=== PATIENT | male | born 1955 | race Caucasian/White ===

== ENCOUNTER → 2023-10-30 08:41 | Outpatient (REF) | payer MEDICARE, SELFPAY | LOC: DHCBC MAIN 08:41 | PROVIDERS: ATTENDING PHYSICIAN Internal Medicine Cardiovascular Disease; FAMILY PHYSICIAN Family Medicine | DX: Z95.2 Presence of prosthetic heart valve (principal) | CPT/HCPCS: 93306 ==

== ENCOUNTER → 2023-12-22 11:09 | Outpatient (REF) | payer MEDICARE, SELFPAY ==
[2023-12-22 12:29] LABS: Urine Albumin Trace (Neg - Trace); Urine Bilirubin Negative (Negative); Urine Character Clear (Clear); Urine Color Yellow; Urine Glucose Negative (Negative); Urine Ketone Negative (Negative); Urine Leukocyte Negative (Negative); Urine Nitrite Negative (Negative); Urine Occult Blood Negative (Negative); Urine Specific Gravity 1.015 (<1.030); Urine Urobilinogen Negative (Neg - 1+)
[2023-12-22 12:31] LABS: % Basophils 0.4 % (0-2); % Eosinophils 2.2 % (0-6); % Immature Granulocytes 0.6 % (0-0.5); % Lymphocytes 15.5 % (20.5-51.1); % Monocytes 7.8 % (1.7-9.3); % Neutrophils 73.5 % (42.2-75.2); Absolute Eosinophils 0.2 10^3/uL (0-0.7); Absolute Lymphocytes 1.1 10^3/uL (1.2-3.4); Absolute Monocytes 0.6 10^3/uL (0.1-0.6); Absolute Neutrophils 5.3 10^3/uL (1.4-6.5); Hematocrit 35.4 % (39.0-52.0); Hemoglobin 11.8 g/dL (13.0-18.0); Mean Corp Hgb Conc. 33.3 g/dL (33.0-37.0); Mean Corpuscular Volume 98.9 fL (80.0-94.0); Nucleated Red Blood Cells % 0 % (-); Platelet Count 174 10^3/uL (130-400); Red Blood Cell Count 3.58 10^6/uL (4.70-6.10); Red Cell Dist. Width 12.9 % (11.5-14.5); Reticulocyte Count 2.5 % (0.4-2.8); White Blood Cell Count 7.3 10^3/uL (4.8-10.8)
[2023-12-22 13:13] LABS: ALT (SGPT) 44 U/L (0-50); AST (SGOT) 46 U/L (17-59); Albumin 4.4 g/dl (3.5-5.0); Alkaline Phosphatase 97 U/L (38-126); Blood Urea Nitrogen 18 mg/dl (9-20); Calcium 9.5 mg/dl (8.4-10.2); Carbon Dioxide 29 mmol/L (22-30); Chloride 102 mmol/L (98-107); Glucose 103 mg/dl (70-99); HDL Cholesterol 77 mg/dl; LDL Cholesterol, Calculated 55 mg/dl; Potassium 4.3 mmol/L (3.5-5.1); Sodium 136 mmol/L (135-145); Total Bilirubin 0.5 mg/dl (0.2-1.3); Total Cholesterol 145 mg/dl (50-199); Total Protein 6.8 g/dl (6.3-8.2); Triglyceride 67 mg/dl (10-149); Very Low Density Lipoprotein 13 mg/dl (0-30); eGFR > 60.00
[2023-12-22 13:41] LABS: TSH 1.73 uIU/ml (0.47-4.68)
[2023-12-22 13:45] LABS: Ferritin 47.2 ng/ml (17.9-464.0)
[2023-12-22 13:58] LABS: Microalbumin, Random Urine 9.1 mg/dl (0.6-1.7); Microalbumin/creatinine Ratio 99.5 mg/g
[2023-12-23 22:31] LABS: Haptoglobin <10 mg/dL (30-200)
== END ==
LOC: REG 11:09
PROVIDERS: ATTENDING PHYSICIAN Internal Medicine Cardiovascular Disease; FAMILY PHYSICIAN Family Medicine
DX: D64.9 Anemia, unspecified (principal); E11.69 Type 2 diabetes mellitus with other specified complication; E78.5 Hyperlipidemia, unspecified; M54.50 Low back pain, unspecified; M25.551 Pain in right hip
CPT/HCPCS: 36415; 72110; 73502; 80053; 80061; 81003; 82043; 82570; 82728; 83010; 83036; 84443; 85025; 85045

== ENCOUNTER → 2024-01-15 09:40 | Outpatient (REF) | payer MEDICARE, SELFPAY | LOC: RAD 09:40 | PROVIDERS: ATTENDING PHYSICIAN Internal Medicine; FAMILY PHYSICIAN Family Medicine | DX: R11.0 Nausea (principal) | CPT/HCPCS: 74246; 74248 ==

== ENCOUNTER → 2024-02-19 07:30 | Outpatient (REF) | payer MEDICARE, SELFPAY | LOC: DHCBC/DCA 07:30 | PROVIDERS: ATTENDING PHYSICIAN Internal Medicine Cardiovascular Disease; FAMILY PHYSICIAN Family Medicine | DX: R07.9 Chest pain, unspecified (principal); I10 Essential (primary) hypertension | CPT/HCPCS: 78452; 93017; A9500; J2785 ==

== ENCOUNTER → 2024-06-20 07:56 | Outpatient (REF) | payer MEDICARE, SELFPAY ==
[2024-06-20 10:19] LABS: % Basophils 0.5 % (0-2); % Eosinophils 3.2 % (0-6); % Immature Granulocytes 0.5 % (0-0.5); % Lymphocytes 24.6 % (20.5-51.1); % Monocytes 7.2 % (1.7-9.3); Absolute Eosinophils 0.2 10^3/uL (0-0.7); Absolute Lymphocytes 1.4 10^3/uL (1.2-3.4); Absolute Monocytes 0.4 10^3/uL (0.1-0.6); Absolute Neutrophils 3.6 10^3/uL (1.4-6.5); Hematocrit 38.9 % (39.0-52.0); Hemoglobin 13.1 g/dL (13.0-18.0); Mean Corp Hgb Conc. 33.7 g/dL (33.0-37.0); Mean Platelet Volume 9.7 fL (7.4-10.4); Nucleated Red Blood Cells % 0 % (-); Platelet Count 155 10^3/uL (130-400); Red Blood Cell Count 3.97 10^6/uL (4.70-6.10); Red Cell Dist. Width 12.9 % (11.5-14.5); Reticulocyte Count 2.5 % (0.4-2.8); White Blood Cell Count 5.6 10^3/uL (4.8-10.8)
[2024-06-20 10:30] LABS: INR 2.54; PT 27.3 Sec (11.4-14.6)
[2024-06-20 10:30] LABS: Urine Albumin Trace (Neg - Trace); Urine Bilirubin Negative (Negative); Urine Character Clear (Clear); Urine Color Yellow; Urine Glucose 3+ (Negative); Urine Ketone Negative (Negative); Urine Leukocyte Negative (Negative); Urine Nitrite Negative (Negative); Urine Occult Blood Negative (Negative); Urine Urobilinogen Negative (Neg - 1+)
[2024-06-20 10:37] LABS: ALT (SGPT) 40 U/L (0-50); AST (SGOT) 41 U/L (17-59); Albumin 4.5 g/dl (3.5-5.0); Alkaline Phosphatase 103 U/L (38-126); Blood Urea Nitrogen 19 mg/dl (9-20); Calcium 9.2 mg/dl (8.4-10.2); Carbon Dioxide 29 mmol/L (22-30); Chloride 101 mmol/L (98-107); Glucose 167 mg/dl (70-99); Potassium 4.6 mmol/L (3.5-5.1); Sodium 143 mmol/L (135-145); Total Bilirubin 0.4 mg/dl (0.2-1.3); eGFR > 60.00
[2024-06-20 10:41] LABS: Glycohemoglobin (HgbA1c) 5.8 % (4.0-5.6)
[2024-06-20 14:04] LABS: PSA, Total - Screen 2.02 ng/ml (0.0-4.0)
[2024-06-20 14:12] LABS: Microalbumin, Random Urine 9.1 mg/dl (0.6-1.7)
[2024-06-20 14:15] LABS: Microalbumin/creatinine Ratio 112.2 mg/g
[2024-06-20 14:18] LABS: Ferritin 23.6 ng/ml (17.9-464.0)
[2024-06-20 14:49] LABS: TSH 1.58 uIU/ml (0.47-4.68)
[2024-06-21 23:19] LABS: Haptoglobin <10 mg/dL (30-200)
== END ==
LOC: RAD 07:56
PROVIDERS: ATTENDING PHYSICIAN Nurse Practitioner; FAMILY PHYSICIAN Family Medicine; OTHER PHYSICIAN Internal Medicine Cardiovascular Disease; REFERRING PHYSICIAN Nuclear Medicine Nuclear Cardiology
DX: R11.0 Nausea (principal); Z95.2 Presence of prosthetic heart valve; Z95.0 Presence of cardiac pacemaker; Z95.5 Presence of coronary angioplasty implant and graft; I48.91 Unspecified atrial fibrillation; E61.1 Iron deficiency; I10 Essential (primary) hypertension; E11.69 Type 2 diabetes mellitus with other specified complication; E78.5 Hyperlipidemia, unspecified; T82.897A Other specified complication of cardiac prosthetic devices, implants and grafts, initial encounter; D64.9 Anemia, unspecified; Z12.5 Encounter for screening for malignant neoplasm of prostate
CPT/HCPCS: 36415; 78264; 80053; 81003; 82043; 82570; 82728; 83010; 83036; 84443; 85025; 85045; 85610; A9541; G0103

== ENCOUNTER → 2024-07-11 11:21 | Outpatient (REF) | payer MEDICARE, SELFPAY | LOC: RAD 11:21 | PROVIDERS: ATTENDING PHYSICIAN Specialist; FAMILY PHYSICIAN Family Medicine | DX: N20.0 Calculus of kidney (principal) | CPT/HCPCS: 76775 ==

== ENCOUNTER → 2024-08-16 08:16 | Outpatient (REF) | payer MEDICARE, SELFPAY ==
[2024-08-16 10:43] LABS: HDL Cholesterol 68 mg/dl; LDL Cholesterol, Calculated 42 mg/dl; Total Cholesterol 134 mg/dl (50-199); Triglyceride 121 mg/dl (10-149); Very Low Density Lipoprotein 24 mg/dl (0-30)
[2024-08-16 11:10] LABS: Vitamin B12 610 pg/ml (239-931)
== END ==
LOC: REG 08:16
PROVIDERS: ATTENDING PHYSICIAN Internal Medicine; FAMILY PHYSICIAN Family Medicine; REFERRING PHYSICIAN Internal Medicine Cardiovascular Disease
DX: E61.1 Iron deficiency (principal); I10 Essential (primary) hypertension; E11.69 Type 2 diabetes mellitus with other specified complication; E78.5 Hyperlipidemia, unspecified; T82.897A Other specified complication of cardiac prosthetic devices, implants and grafts, initial encounter; D64.9 Anemia, unspecified; Z12.5 Encounter for screening for malignant neoplasm of prostate
CPT/HCPCS: 36415; 80061; 82607

== ENCOUNTER → 2024-11-23 12:01 | Outpatient (REF) | payer MEDICARE, SELFPAY ==
[2024-11-23 14:02] LABS: % Basophils 0.6 % (0-2); % Eosinophils 2.9 % (0-6); % Immature Granulocytes 0.3 % (0-0.5); % Monocytes 8.2 % (1.7-9.3); Absolute Eosinophils 0.2 10^3/uL (0-0.7); Absolute Lymphocytes 1.3 10^3/uL (1.2-3.4); Absolute Monocytes 0.5 10^3/uL (0.1-0.6); Absolute Neutrophils 4.5 10^3/uL (1.4-6.5); Hematocrit 39.9 % (39.0-52.0); Hemoglobin 12.7 g/dL (13.0-18.0); Mean Corp Hgb Conc. 31.8 g/dL (33.0-37.0); Mean Corpuscular Volume 97.3 fL (80.0-94.0); Mean Platelet Volume 10.1 fL (7.4-10.4); Nucleated Red Blood Cells % 0 % (-); Platelet Count 179 10^3/uL (130-400); Red Cell Dist. Width 13.2 % (11.5-14.5); White Blood Cell Count 6.6 10^3/uL (4.8-10.8)
[2024-11-23 14:33] LABS: ALT (SGPT) 44 U/L (0-50); AST (SGOT) 42 U/L (17-59); Albumin 4.2 g/dl (3.5-5.0); Alkaline Phosphatase 103 U/L (38-126); Blood Urea Nitrogen 21 mg/dl (9-20); Calcium 9.4 mg/dl (8.4-10.2); Carbon Dioxide 31 mmol/L (22-30); Chloride 105 mmol/L (98-107); Glucose 105 mg/dl (70-99); HDL Cholesterol 75 mg/dl; LDL Cholesterol, Calculated 48 mg/dl; Sodium 141 mmol/L (135-145); Total Bilirubin 0.8 mg/dl (0.2-1.3); Total Cholesterol 144 mg/dl (50-199); Total Protein 6.5 g/dl (6.3-8.2); Triglyceride 107 mg/dl (10-149); Very Low Density Lipoprotein 21 mg/dl (0-30); eGFR > 60.00
[2024-11-24 08:44] LABS: Glycohemoglobin (HgbA1c) 5.9 % (4.0-5.6)
== END ==
LOC: REG 12:01
PROVIDERS: ATTENDING PHYSICIAN Family Medicine
DX: E11.69 Type 2 diabetes mellitus with other specified complication (principal); E78.5 Hyperlipidemia, unspecified
CPT/HCPCS: 36415; 80053; 80061; 83036; 85025

== ENCOUNTER → 2025-01-05 09:50 | Outpatient (REF) | payer MEDICARE, SELFPAY ==
[2025-01-05 11:10] LABS: % Basophils 0.7 % (0-2); % Eosinophils 3.1 % (0-6); % Immature Granulocytes 0.7 % (0-0.5); % Lymphocytes 23.8 % (20.5-51.1); % Monocytes 8.1 % (1.7-9.3); % Neutrophils 63.6 % (42.2-75.2); Absolute Eosinophils 0.2 10^3/uL (0-0.7); Absolute Lymphocytes 1.4 10^3/uL (1.2-3.4); Absolute Monocytes 0.5 10^3/uL (0.1-0.6); Absolute Neutrophils 3.9 10^3/uL (1.4-6.5); Hematocrit 38.8 % (39.0-52.0); Hemoglobin 12.8 g/dL (13.0-18.0); Mean Corpuscular Hgb 30.8 pg (27.0-31.0); Mean Corpuscular Volume 93.5 fL (80.0-94.0); Mean Platelet Volume 9.9 fL (7.4-10.4); Nucleated Red Blood Cells % 0 % (-); Platelet Count 186 10^3/uL (130-400); Red Blood Cell Count 4.15 10^6/uL (4.70-6.10); Red Cell Dist. Width 13.2 % (11.5-14.5); White Blood Cell Count 6.1 10^3/uL (4.8-10.8)
[2025-01-05 11:40] LABS: Iron 113 ug/dl (49-181); LDH 359 U/L (120-246)
[2025-01-05 12:24] LABS: Ferritin 15.7 ng/ml (17.9-464.0)
[2025-01-05 12:38] LABS: Vitamin B12 621 pg/ml (239-931)
[2025-01-07 03:37] LABS: Haptoglobin <10 mg/dL (30-200)
== END ==
LOC: REG 09:50
PROVIDERS: ATTENDING PHYSICIAN Internal Medicine; FAMILY PHYSICIAN Family Medicine; OTHER PHYSICIAN Internal Medicine Cardiovascular Disease
DX: D50.9 Iron deficiency anemia, unspecified (principal); Z79.4 Long term (current) use of insulin; Z95.0 Presence of cardiac pacemaker; Z95.2 Presence of prosthetic heart valve; R74.02 Elevation of levels of lactic acid dehydrogenase [LDH]; K21.9 Gastro-esophageal reflux disease without esophagitis; I49.5 Sick sinus syndrome; I25.10 Atherosclerotic heart disease of native coronary artery without angina pectoris; I45.10 Unspecified right bundle-branch block; D64.9 Anemia, unspecified; E11.69 Type 2 diabetes mellitus with other specified complication; Z79.899 Other long term (current) drug therapy
CPT/HCPCS: 36415; 82607; 82728; 83010; 83540; 83615; 85025

== ENCOUNTER 2025-01-10 14:36 | Inpatient (IN) | payer MEDICARE, SELFPAY ==
[2025-01-10 10:37] VITALS: BP 144/94
[2025-01-10 11:02] LABS: % Basophils 0.5 % (0-2); % Eosinophils 2.5 % (0-6); % Immature Granulocytes 0.4 % (0-0.5); % Lymphocytes 18.7 % (20.5-51.1); % Monocytes 8.6 % (1.7-9.3); % Neutrophils 69.3 % (42.2-75.2); Absolute Eosinophils 0.2 10^3/uL (0-0.7); Absolute Lymphocytes 1.4 10^3/uL (1.2-3.4); Absolute Monocytes 0.7 10^3/uL (0.1-0.6); Absolute Neutrophils 5.3 10^3/uL (1.4-6.5); Hematocrit 40.1 % (39.0-52.0); Hemoglobin 13.2 g/dL (13.0-18.0); Mean Corp Hgb Conc. 32.9 g/dL (33.0-37.0); Mean Corpuscular Hgb 30.8 pg (27.0-31.0); Mean Corpuscular Volume 93.5 fL (80.0-94.0); Mean Platelet Volume 9.6 fL (7.4-10.4); Nucleated Red Blood Cells % 0 % (-); Platelet Count 187 10^3/uL (130-400); Red Blood Cell Count 4.29 10^6/uL (4.70-6.10); Red Cell Dist. Width 13.2 % (11.5-14.5); White Blood Cell Count 7.7 10^3/uL (4.8-10.8)
--- NOTE | 2025-01-10 11:02 | ED.GENMED ---
History of Present Illness
General
Chief Complaint: Abnormal Lab Value
Source: patient
Exam Limitations: none
Time Seen by Provider: 01/10/25 10:41
History of Present Illness
History of Present Illness:
See MDM
Past History
Past History
ED Past Medical History: Arrthythmia (Atrial fib/Flutter), CAD, GERD, HTN, Hypercholesterolemia, NIDDM, Valvular disease and Other (Iatrogenic intracranial hemorrhage requiring craniotomy, Kidney stones, RBBB, L subdural hemorrhage)
ED Past Surgical History: Appendectomy, Cardiac (CABG and mitral valve replacement, Albation, Stents) and Other (hernia)
Social History
Tobacco: Former smoker
Alcohol: Occasional
Drug: None
Personal:
Living: with family
Employment: Employed
Family History
Family History: Other (nc)
Phy Exam
Physical Exam
Physical Exam:
See MDM
Course
Orders/Labs/Results
Orders:
Orders
01/10/25 10:52
Complete Blood Count/With Diff Urgent
Comprehensive Metabolic Panel Urgent
PT/INR [Prothrombin Time] Urgent
Vital Signs
Initial and Last Documented VS:
Initial Vital Signs
Temp Pulse Resp BP Pulse Ox
97.8 F 73 16 144/94 99
01/10/25 10:37 01/10/25 10:37 01/10/25 10:37 01/10/25 10:37 01/10/25 10:37
Last Documented Vital Signs
Temp Pulse Resp BP Pulse Ox
97.8 F 73 16 144/94 99
01/10/25 10:37 01/10/25 10:37 01/10/25 10:37 01/10/25 10:37 01/10/25 10:37
MDM/Problems Addressed
Differential Diagnosis Includes:
HPI and MDM Narrative:
69-year-old male presenting to the emergency department for heparin drip and admission for colonoscopy. Patient has a prosthetic valve and is currently on Coumadin. He is due for colonoscopy but needs to be on IV heparin until INR is less than
1.3. Patient states his Coumadin level was recently 2.1. He was sent in from cardiology for admission
On arrival, patient Is well-appearing nontoxic. He is in no acute distress. Will start IV heparin. Cardiology made aware and they will admit
Physical exam
General: Well appearing and non-toxic
HEENT: protecting airway
Neck: appears supple
CV: No evidence of cyanosis
Resp: No accessory muscle use
Abd: Non-distended
Extremities: No deformities
Neuro: alert
Psych: Normal affect
Skin: Intact
Problems Addressed including Acute and Chronic Conditions affecting care:
1. History of prosthetic valve
Acuity: acute
Prognosis: stable
Details: Patient on Coumadin chronically. He will need a lower INR for colonoscopy. Will start heparin while holding Coumadin
Drug therapy (if applicable): OTC meds, please see d/c instruction regarding Rx drugs
Amount and/or Complexity of Data Reviewed
Clinical info obtained from: Patient
External data reviewed: N/A
Labs I independently reviewed (but not limited to): INR
Radiology: N/A
Pulse Ox: not hypoxic
EKG independently reviewed: N/A
Correctional Agency Director: N/A
Critical Care: N/A
Risk of Complication:
Social Determinants of health: Good social support
Discussed with other providers: Cardiology
Escalation of Care includes Admit/Obs: Given the patient's need to be on heparin while Coumadin is held, will admit
Occasional wrong word or 'sound a like' substitutions may have occurred due to the inherent limitations of voice recognition software. Read the chart carefully and recognize, using context, where substitutions have occurred.
*Critical Care Note
Total Time (30-74mins, 75-104mins- exclusive of procedures): Not Applicable
ED Attending Note
-
Portions of this chart may have been created with voice recognition software.� Occasional wrong word or��sound alike� substitutions may have occurred due to the inherent limitations of voice recognition software.
Discharge Plan
Departure
Patient Disposition: Admit
Date of Disposition: 01/10/25
Time of Disposition: 11:01
Presentation/result/management discussed w/ accepting MD/DO: Cardiology
Discharge Problem:
Presence of prosthetic heart valve
Prescriptions:
No Action
lorazepam 1 MG tablet
1 mg PO Q8HPRN PRN (Reason: anxiety)
Patient Comments:
09/21/2019 patient filled #[id number] for 20 days 08/26/2019
ezetimibe 10 MG tablet
10 mg PO QPM
nitroglycerin 0.4 MG tablet, sublingual
0.4 mg sublingual [id number] PRN (Reason: chest pain) Qty: 30 3RF
Patient Comments:
For AP
irbesartan-hydrochlorothiazide 1 EACH tablet
1 ea PO DAILY
Janumet 1 EACH tablet
1 ea PO BID
Trulicity 0.75 MG/0.5 ML pen injector
0.75 mg SC .WEEKLY THURSDAY
simvastatin 40 MG tablet
40 mg PO HS
warfarin [Jantoven] 7.5 MG tablet
7.5 mg PO MOTUWETH
Rx Instructions:
Follows Dr. Jin's instructions
warfarin [Jantoven] 5 MG tablet
5 mg PO SUFRSA
Rx Instructions:
Follows Dr. Jin's instructions
omeprazole 40 MG capsule,delayed release(/EC)
40 mg PO DAILY
sennosides [senna] 8.6 MG tablet
8.6 mg PO BID
docusate sodium 250 MG capsule
250 mg PO BID
ferrous sulfate [Iron (ferrous sulfate)] 325 MG tablet
325 mg PO BID
potassium chloride [Klor-Con M20] 20 MEQ tablet,ER particles/crystals
20 meq PO PRN PRN (Reason: with lasix)
Patient Comments:
weeks ago per patient.
furosemide 40 MG tablet
40 mg PO DAILYPRN PRN (Reason: swelling)
Patient Comments:
last dose was beginning of January per patient.
tamsulosin 0.4 MG capsule
0.4 mg PO DAILY
amlodipine 10 MG tablet
10 mg PO DAILY
lorazepam 1 MG tablet
1 mg PO HSPRN PRN (Reason: anxiety)
potassium citrate 15 MEQ tablet extended release
15 meq PO BID
cyclobenzaprine 10 mg tablet
10 mg PO TID PRN (Reason: spasm) Qty: 14 0RF
hydrocodone-acetaminophen 5-325 mg tablet
2 tab PO Q4H PRN (Reason: pain) Qty: 14 0RF
Centrum Silver Tablet
1 tab PO DAILY
tramadol 50 MG tablet
50 mg PO Q8 PRN (Reason: pain) Qty: 30 0RF
Interventions
Interventions:
*Risk Screen - Suicide Last Done: 01/10/25 10:40
*Neglect/Abuse Screening Last Done: 01/10/25 10:40
Discharge Date and Time
Print Language: DIVEHI
[2025-01-10 11:11] LABS: INR 1.62; PT 19.4 Sec (11.4-14.6)
[2025-01-10 11:24] LABS: ALT (SGPT) 30 U/L (0-50); AST (SGOT) 30 U/L (17-59); Albumin 4.5 g/dl (3.5-5.0); Alkaline Phosphatase 86 U/L (38-126); Blood Urea Nitrogen 19 mg/dl (9-20); Calcium 9.6 mg/dl (8.4-10.2); Carbon Dioxide 29 mmol/L (22-30); Chloride 107 mmol/L (98-107); Glucose 116 mg/dl (70-99); Potassium 4.9 mmol/L (3.5-5.1); Sodium 140 mmol/L (135-145); Total Bilirubin 0.9 mg/dl (0.2-1.3); eGFR > 60.00
[2025-01-10] MEDS: HEPARIN 4000 UNITS IV (11:48)
[2025-01-10] MEDS: HEPARIN 25000 UNITS/250 ML IV (11:49)
[2025-01-10 12:37] LABS: APTT 34.3 Sec (23.4-35.0)
--- NOTE | 2025-01-10 12:56 | W.PN.CD ---
Today's Communication / Plan
-
Bridging with IV heparin
Plan for colonoscopy tomorrow by Dr. Genao
Prep as directed by GI
Impression / Plan
-
69-year-old male with mechanical mitral valve replacement and coronary artery bypass grafting in 2007, atrial fibrillation, A-fib ablation pacemaker history of CVA who is scheduled have colonoscopy on Thursday. Patient in the past had an issue
after taking Lovenox. Since that time he has been bridged with IV heparin for procedures.. Patient previously was followed by Dr. Jin until his half-way and now is followed by Dr. Martinez. Patient scheduled for colonoscopy by Dr. Mcallister on
01/11/2025. Last dose of Coumadin was on 01/07/2025. INR yesterday was 3.0. Today INR is below 2.0
.
Anticoagulation. Patient is anticoagulated with Coumadin and target INR has been 2.5-3.5. Some notes suggest the patient had CVA when INR was below 2.5. Patient is on anticoagulation due to mechanical mitral valve and history of A-fib
- Continue off Coumadin until after colonoscopy.
- Bridging with IV heparin
- Initiate Coumadin and resume IV heparin as soon as safe post colonoscopy.
.
Mechanical mitral valve. Stable by most recent echo. Anticoagulation as noted above
.
Coronary artery disease/history of coronary artery bypass grafting. Stable without angina.
.
.
Pacemaker. Stable
.
Precolonoscopy.
- Patient stable from a cardiology standpoint to proceed with colonoscopy as scheduled
- Plan for bridging with IV heparin preprocedure and postprocedure
Physical Exam
Vital Signs/Labs
Vital Signs
Temp Pulse Resp BP Pulse Ox
97.8 F 73 16 144/94 99
01/10/25 10:37 01/10/25 10:37 01/10/25 10:37 01/10/25 10:37 01/10/25 10:37
01/09/25 01/10/25 01/11/25
06:59 06:59 06:59
Actual Weight 106.3 kg
01/10/25 10:52
01/10/25 10:52
PT 19.4 Sec (11.4-14.6) H 01/10/25 10:52
INR 1.62 01/10/25 10:52
APTT 34.3 Sec (23.4-35.0) 01/10/25 11:27
Physical Exam
Constitutional: No acute distress
Cardiovascular: Rhythm & rate is regular and Other (Mechanical S1)
Respiratory: Respiratory effort normal
GI: Soft and Non tender
Neuro/Psych: Alert, Oriented and AO x 3
Other: Skin
Data Reviewed
-
Date of Service: January 10, 2025
Medical Decision Making: Reviewed Test Results
Medical Tests (PFT, Pathology etc): Report Reviewed by me
Labs: Labs Reviewed by me
--- NOTE | 2025-01-10 13:51 | CON.GI ---
Addendum entered and electronically signed by Camden Capellan MD 01/10/25 16:17:
I saw and examined the patient.
The HUMAN RESOURCES PROJECT COORDINATOR or PA's note was reviewed and I agree with the note.
Comment: 69yo male hx MVR, Afib, hx TIA while holding coumadin in the past and [facility] admitted for bridging heparin for elective EGD/colonoscopy for GERD and CRC screening. Currently reflux controlled on protonix. Last EGD 2020 showed food in
stomach. Currently denies early satiety, abd pain, n/v. Last colonoscopy 2019 showed hyperplastic polyps. Has hx anemia, and possible component of hemolysis. Hgb today 13.2. INR 1.62. Currently on heparin gtt
REC:
Proceed with EGD/colonoscopy tomorrow
Hold heparin gtt at 8am for procedure at 1pm and resume GAURAV
Original Note:
Consultation
-
Date/Time Consultation Requested: 01/10/25 1130
Date/Time Consultation Performed: 01/10/25 1400
Requesting Provider: JAME Newby
Performing Provider: JAME Wang, Camden Capellan MD
Reason for Consultation: pre EGD/colon with bridge
Medical History
Chief Complaint / HPI
Chief Complaint: pre EGD/colon with need for heparin bridge, hx GERD, RICHELLE
History of Present Illness:
Pt is a 69yo with hx mechanical mitral valve on warfarin, NIDDM, pacer, afib with prior ablation, deficiency anemia, prior subdural hematoma with lovenox Bridge, nephrolithiasis with prior lithotripsy, thyroid nodule, DVT: RUE , hx colon polyps,
sleep apnea, hx mumps, chickenpox, prior PNA, DDD, hip osteo, hernia repair presents for heparin bridging prior to EGD/colon with assist of cardiology.
Pt was last seen in GI office in July and now coordinated with cardiology for admission for bridging. He currently denies any GI issue with dysphagia, GERD, nausea, vomiting, abdominal pain, diarrhea, constipation, blood or black in stools.
Past Medical History
Past Medical History: Arrhythmias (afib ), CAD, CVA (prior TIA), HTN, Hypercholesterolemia, NIDDM, Seizures (anxiety ), Valvular Disease (mitral regurg, MVP hx MVR) and Other (Iron deficiency anemia, prior subdural hematoma with lovenox Bridge,
nephrolithiasis with prior lithotripsy, thyroid nodule, DVT: RUE , hx colon polyps, sleep apnea, hx mumps, chickenpox, prior PNA, DDD, hip osteo)
Past Surgical History: Brain (prior craniotomy), Cardiac (mechanical mitral valve on chronic warfarin, prior CABG/stents, aflutter ablation, pacer ) and Other (hernia repair )
Social History
Tobacco: Non-Smoker
Alcohol: Occasional
Drug: None
Personal:
Living: With Family
Employment: Retired
Family History
Family History: Other (father CAD , glaucoma, HTN, mother hx uterine and ovarian CA, HTN, DM)
Allergies / Home Medications
Allergy/AdvReac Type Severity Reaction Status Date / Time
No Known Drug Allergies Allergy NA Verified 01/10/25 10:37
tree nut [Tree Nut] Allergy mild Verified 01/10/25 10:37
throat
close
apple/peaches/jay/necterines Allergy throat Uncoded 01/10/25 10:37
close
seasonal Allergy Congested, Uncoded 01/10/25 10:37
watery
eyes,
runny nose
�Medication �Instructions �Recorded
ezetimibe 10 mg tablet 10 mg PO DAILY High cholesterol 02/14/10
dulaglutide 0.75 mg/0.5 mL 0.75 mg SC MO Diabetes 01/10/19
subcutaneous pen injector
(Trulicity)
warfarin 7.5 mg tablet (Jantoven) 7.5 mg PO QPM Blood clot 09/21/19
prevention/tx
docusate sodium 250 mg capsule 250 mg PO BID Constipation 11/15/20
sennosides 8.6 mg tablet (senna) 8.6 mg PO BID Constipation 11/15/20
ferrous sulfate 325 mg (65 mg 325 mg PO BID 02/19/22
iron) tablet (Iron (ferrous
sulfate))
amlodipine 10 mg tablet 10 mg PO DAILY 02/21/22
Citralith 2 packet PO DAILY 01/10/25
allopurinol 300 mg tablet 300 mg PO DAILY 01/10/25
atorvastatin 80 mg tablet (Lipitor) 80 mg PO DAILY 01/10/25
empagliflozin 10 mg tablet 10 mg PO QPM 01/10/25
(Jardiance)
furosemide 40 mg tablet (Lasix) 40 mg PO DAILYPRN PRN fluids 01/10/25
irbesartan 300 1 tab PO DAILY 01/10/25
mg-hydrochlorothiazide 12.5 mg
tablet
lorazepam 1 mg tablet 1 mg PO Q6HPRN PRN anixety 01/10/25
metformin 1,000 mg tablet 1,000 mg PO BID 01/10/25
oxycodone-acetaminophen 5 mg-325 1 tab PO TIDPRN PRN severe pains 01/10/25
mg tablet (Percocet)
pantoprazole 40 mg tablet,delayed 40 mg PO DAILY 01/10/25
release (Protonix)
ramelteon 8 mg tablet 8 - 16 mg PO HS 01/10/25
tamsulosin 0.4 mg capsule (Flomax) 0.4 mg PO DAILY 01/10/25
therapeutic multivitamin 1 tab PO DAILY 01/10/25
Review of Systems
-
History Source: Patient
Constitutional: Reports No Symptoms
EENT: Reports No Symptoms
Respiratory: Reports No Symptoms
Cardiac: Reports No Symptoms
Abdomen/GI: Reports No Symptoms
: Reports No Symptoms
Musculoskeletal: Reports No Symptoms
Skin: Reports No Symptoms
Neurological: Reports No Symptoms
Endocrine: Reports No Symptoms
Hematologic/Lymphatic: Reports No Symptoms
Vital Signs
Temp Pulse Resp BP Pulse Ox
97.8 F 73 16 144/94 99
01/10/25 10:37 01/10/25 10:37 01/10/25 10:37 01/10/25 10:37 01/10/25 10:37
Physical Exam
Exam
General: Well Developed, Well Nourished and No Apparent Distress
HEENT: Normocephalic and Anicteric
Respiratory: Clear
Cardiac: Regular Rhythm
GI: Soft, Non Tender and Non Distended
Musculoskeletal: No Clubbing and No Cyanosis
Skin: Warm and Dry
Neuro: Awake, Alert and AO x 3
Psych: Calm
Results
WBC 7.7 10^3/uL (4.8-10.8) 01/10/25 10:52
Hgb 13.2 g/dL (13.0-18.0) 01/10/25 10:52
Hct 40.1 % (39.0-52.0) 01/10/25 10:52
MCV 93.5 fL (80.0-94.0) 01/10/25 10:52
Plt Count 187 10^3/uL (130-400) 01/10/25 10:52
Absolute Neuts (auto) 5.3 10^3/uL (1.4-6.5) 01/10/25 10:52
PT 19.4 Sec (11.4-14.6) H 01/10/25 10:52
INR 1.62 01/10/25 10:52
APTT Cancelled 01/10/25 11:35
Sodium 140 mmol/L (135-145) 01/10/25 10:52
Potassium 4.9 mmol/L (3.5-5.1) 01/10/25 10:52
Chloride 107 mmol/L (98-107) 01/10/25 10:52
Carbon Dioxide 29 mmol/L (22-30) 01/10/25 10:52
BUN 19 mg/dl (9-20) 01/10/25 10:52
Creatinine 1.0 mg/dL (0.7-1.3) 01/10/25 10:52
Calcium 9.6 mg/dl (8.4-10.2) 01/10/25 10:52
Total Bilirubin 0.9 mg/dl (0.2-1.3) 01/10/25 10:52
AST 30 U/L (17-59) 01/10/25 10:52
ALT 30 U/L (0-50) 01/10/25 10:52
Alkaline Phosphatase 86 U/L (38-126) 01/10/25 10:52
Diagnostic Image Results:
Prior GI Procedures:
EGD:04/11/21 [facility] for RICHELLE - Normal esophagus.
- Z-line regular, 47 cm from the incisors.
- Mild antral gastritis. Biopsied.
- A medium amount of food (residue) in the stomach.
- Normal examined duodenum. Biopsied.
There was no endoscopic evidence of bleeding,
ulceration or varices in the entire examined
esophagus, stomach or duodenum.
Colonoscopy: 03/09/20 [facility] good prep to IC valve - One 4 mm polyp in the sigmoid colon. Biopsied.
- Minimal diverticulosis in the sigmoid colon. bx HP polyp
flex si [facility] - Preparation of the colon was fair.
- The rectum, sigmoid colon, descending colon and
splenic flexure are normal.
- Retroflexion normal
- No specimens collected
Assessment / Plan
-
Pt is a 69yo with hx mechanical mitral valve on warfarin, NIDDM, pacer, afib with prior ablation, deficiency anemia, prior subdural hematoma with lovenox Bridge, nephrolithiasis with prior lithotripsy, thyroid nodule, DVT: RUE , hx colon polyps,
sleep apnea, hx mumps, chickenpox, prior PNA, DDD, hip osteo, hernia repair presents for heparin bridging prior to EGD/colon with assist of cardiology.
Pt was last seen in GI office in July and now coordinated with cardiology for admission for bridging. He currently denies any GI issue with dysphagia, GERD, nausea, vomiting, abdominal pain, diarrhea, constipation, blood or black in stools.
-hx Mech mitral valve(coumadin prior to admission) -on heparin bridge
-hx RICHELLE
-GERD
-hx colon polyps- due for colonoscopy
-hx nausea-- stable now without complaints
other med problems:
-NIDDM
-pacer
- afib with prior ablation
- prior subdural hematoma with lovenox Bridge
-nephrolithiasis with prior lithotripsy
- thyroid nodule
-hx DVT
-sleep apnea
-DDD/hip osteo
-hernia repair
PLAN:
pt now admitted for heparin bridge prior to EGD/colon
labs stable on admission with hbg 13.2, INR 1.62, chemistry stable
heparin gtt with hold at 8AM- cards helping for management
will proceed with suprep as planned with gas x and dulcolax tabs -- will have pharmacy check
ok foe clears then NPO in AM
-
-
Thank you for consultation and allowing me to participate in the patient's care. Please call the promotions assistant sales marketing GI physician during the after hours with any questions or concerns.
[2025-01-10 14:39] VITALS: BMI 30.1
[2025-01-10 14:56] VITALS: BP 160/88
--- NOTE | 2025-01-10 15:15 | PTCARENOTE ---
Patient received from ED nurse. Medications reviewed. Admission questions completed. Patient sitting comfortably in bed. Reviewed plan of care and questions encouraged.
--- NOTE | 2025-01-10 16:51 | CM ---
Chart reviewed. Patient is independent of ADLS, lives with his in a [address], 4 [address], 0 DME. Plan is for the patient to return home. CM to follow
[2025-01-10] MEDS: NON-FORMULARY ITEM 1 UNIT PO (16:54)
[2025-01-10] MEDS: GLUCOPHAGE PO (16:54)
[2025-01-10] MEDS: MYLICON 160 MG PO (16:55)
[2025-01-10] MEDS: DULCOLAX 10 MG PO (16:56)
[2025-01-10 18:44] LABS: APTT 82.7 Sec (23.4-35.0)
[2025-01-10 19:49] VITALS: BP 131/83
[2025-01-10 20:02] VITALS: BP 129/81
--- NOTE | 2025-01-10 20:49 | PTCARENOTE ---
Patient received at change of shift out of bed ambulating. Patient reports abdominal cramping, but otherwise has no complaints. Denies nausea/vomiting. Atrial paced on the monitor. Oxygen saturation 98-100% on room air. Heparin gtt infusing at
1500units/hr. Plan of care discussed. Call agee within reach. Care ongoing.
[2025-01-10 23:47] VITALS: BP 121/79
[2025-01-11] VITALS (14 sets, daily range): BP systolic 16–129; BP diastolic 45–94; BMI 29.9
[2025-01-11 00:19] LABS: APTT 72.9 Sec (23.4-35.0)
[2025-01-11] MEDS: HEPARIN 25000 UNITS/250 ML IV (04:07)
[2025-01-11] MEDS: MYLICON 160 MG PO (05:03)
[2025-01-11] MEDS: DULCOLAX 10 MG PO (05:03)
[2025-01-11] MEDS: NON-FORMULARY ITEM 1 UNIT PO (06:03)
[2025-01-11] MEDS: ATIVAN 1 MG PO ×3 (06:12→18:34)
[2025-01-11 06:38] LABS: APTT 88.6 Sec (23.4-35.0)
--- NOTE | 2025-01-11 08:03 | PTCARENOTE ---
pt is AOx3, no complaints of pain or discomfort. HEparin gtt stopped per orders. Pt NPO for EGD/colonscopy later today. Independent OOB. Call agee within reach.
--- NOTE | 2025-01-11 08:07 | W.PN.CD ---
Today's Communication / Plan
-
IV Heparin held at 8 AM for colonoscopy at 1PM.
Resume IV Heparin as soon as GI feels it is safe post procedure
Would resume coumadin as soon as safe post procedure. He is normally on 7.5mg. Would radha 10mg coumadin as first dose when restarting
Impression / Plan
-
69-year-old male with mechanical mitral valve replacement and coronary artery bypass grafting in 2007, atrial fibrillation, A-fib ablation pacemaker history of CVA who is scheduled have colonoscopy on Thursday. Patient in the past had an issue
after taking Lovenox. Since that time he has been bridged with IV heparin for procedures.. Patient previously was followed by Dr. Jin until his [facility] and now is followed by Dr. Martinez. Patient scheduled for colonoscopy by Dr. Mcallister on
01/11/2025. Last dose of Coumadin was on 01/07/2025. INR yesterday was 3.0. Today INR is below 2.0
.
Anticoagulation. Patient is anticoagulated with Coumadin and target INR has been 2.5-3.5. Some notes suggest the patient had CVA when INR was below 2.5. Patient is on anticoagulation due to mechanical mitral valve and history of A-fib
- Continue off Coumadin until after colonoscopy.
- Bridging with IV heparin
- Initiate Coumadin and resume IV heparin as soon as safe post colonoscopy.
.
Mechanical mitral valve. Stable by most recent echo. Anticoagulation as noted above
.
Coronary artery disease/history of coronary artery bypass grafting. Stable without angina.
.
.
Pacemaker. Stable
.
Precolonoscopy.
- Patient stable from a cardiology standpoint to proceed with colonoscopy as scheduled
- Plan for bridging with IV heparin preprocedure and postprocedure
- colonoscopy 01/11/25
Physical Exam
Vital Signs/Labs
Vital Signs
Temp Pulse Resp BP Pulse Ox
97.9 F 70 18 122/75 96
05/14/25 03:59 01/11/25 05:00 01/11/25 03:59 01/11/25 04:00 01/11/25 04:00
01/10/25 01/11/25 01/12/25
06:59 06:59 06:59
Actual Weight 105.4 kg
01/10/25 10:52
PT 19.4 Sec (11.4-14.6) H 01/10/25 10:52
INR 1.62 01/10/25 10:52
APTT 88.6 Sec (23.4-35.0) H 01/11/25 06:10
Physical Exam
Constitutional: No acute distress
Cardiovascular: Rhythm & rate is regular and Other ([facility] S1)
Respiratory: Respiratory effort normal
Neuro/Psych: Alert
Data Reviewed
-
Date of Service: January 11, 2025
Medical Decision Making: Reviewed Test Results
Labs: Labs Reviewed by me
[2025-01-11] MEDS: PROTONIX 40 MG PO (08:19)
[2025-01-11] MEDS: ZETIA 10 MG PO (08:19)
[2025-01-11] MEDS: FLOMAX 0.4 MG PO (08:19)
[2025-01-11] MEDS: NORVASC 10 MG PO (08:19)
[2025-01-11] MEDS: AVAPRO 300 MG PO (08:19)
[2025-01-11] MEDS: ZYLOPRIM 300 MG PO (08:19)
[2025-01-11] MEDS: LIPITOR 80 MG PO (08:19)
[2025-01-11] MEDS: ORETIC 12.5 MG PO (08:19)
[2025-01-11] MEDS: GLUCOPHAGE PO (08:27)
[2025-01-11 08:38] LABS: Glucose - Point of Care 120 mg/dl (70-99)
[2025-01-11] MEDS: THERAGRAN PO (09:22)
[2025-01-11 11:28] LABS: INR 1.27; PT 16.4 Sec (11.4-14.6)
[2025-01-11 11:57] LABS: % Basophils 0.6 % (0-2); % Eosinophils 3.7 % (0-6); % Immature Granulocytes 0.4 % (0-0.5); % Lymphocytes 20.8 % (20.5-51.1); % Monocytes 10.1 % (1.7-9.3); % Neutrophils 64.4 % (42.2-75.2); Absolute Eosinophils 0.2 10^3/uL (0-0.7); Absolute Monocytes 0.5 10^3/uL (0.1-0.6); Absolute Neutrophils 3.1 10^3/uL (1.4-6.5); Hematocrit 37.8 % (39.0-52.0); Hemoglobin 12.7 g/dL (13.0-18.0); Mean Corp Hgb Conc. 33.6 g/dL (33.0-37.0); Mean Corpuscular Hgb 30.8 pg (27.0-31.0); Mean Corpuscular Volume 91.5 fL (80.0-94.0); Nucleated Red Blood Cells % 0 % (-); Platelet Count 179 10^3/uL (130-400); Red Blood Cell Count 4.13 10^6/uL (4.70-6.10); Red Cell Dist. Width 13.2 % (11.5-14.5); White Blood Cell Count 4.9 10^3/uL (4.8-10.8)
[2025-01-11 12:54] LABS: Glucose - Point of Care 123 mg/dl (70-99)
[2025-01-11 14:58] LABS: Glucose - Point of Care 122 mg/dl (70-99)
--- NOTE | 2025-01-11 16:02 | PTCARENOTE ---
received pt back from pacu/gi lab. no complaints of pain or discomfort. diet resumed. VSS. Call agee within reach.
[2025-01-11] MEDS: GLUCOPHAGE 1000 MG PO (16:33)
[2025-01-11] MEDS: COUMADIN 10 MG PO (17:48)
--- NOTE | 2025-01-11 20:32 | PTCARENOTE ---
Patient received at change of shift out of bed to the chair. Atrial paced on telemetry. Oxygen saturation 97% on room air. Denies pain or discomfort at this time. Plan of care discussed. Heparin gtt infusing at 1600units/hr. Call agee within reach.
Care ongoing.
[2025-01-11] MEDS: COLACE LIQUID 250 MG PO (22:44)
[2025-01-11 23:19] LABS: APTT 53.3 Sec (23.4-35.0)
[2025-01-12] VITALS (10 sets, daily range): BP systolic 107–125; BP diastolic 59–80
[2025-01-12] MEDS: MELATONIN 5 MG PO (00:31)
[2025-01-12] MEDS: HEPARIN 25000 UNITS/250 ML IV (00:32)
[2025-01-12] MEDS: ATIVAN 1 MG PO ×3 (00:35→15:04)
[2025-01-12 05:41] LABS: % Basophils 0.4 % (0-2); % Eosinophils 3.6 % (0-6); % Immature Granulocytes 0.6 % (0-0.5); % Lymphocytes 20.1 % (20.5-51.1); % Monocytes 9.9 % (1.7-9.3); % Neutrophils 65.4 % (42.2-75.2); Absolute Eosinophils 0.3 10^3/uL (0-0.7); Absolute Lymphocytes 1.4 10^3/uL (1.2-3.4); Absolute Monocytes 0.7 10^3/uL (0.1-0.6); Absolute Neutrophils 4.5 10^3/uL (1.4-6.5); Hematocrit 35.9 % (39.0-52.0); Mean Corp Hgb Conc. 33.4 g/dL (33.0-37.0); Mean Corpuscular Volume 92.8 fL (80.0-94.0); Mean Platelet Volume 9.5 fL (7.4-10.4); Nucleated Red Blood Cells % 0 % (-); Platelet Count 156 10^3/uL (130-400); Red Blood Cell Count 3.87 10^6/uL (4.70-6.10); Red Cell Dist. Width 13.2 % (11.5-14.5); White Blood Cell Count 6.9 10^3/uL (4.8-10.8)
[2025-01-12 05:47] LABS: INR 1.23
[2025-01-12 05:50] LABS: APTT 96.7 Sec (23.4-35.0)
[2025-01-12 06:38] LABS: Albumin 3.7 g/dl (3.5-5.0); Blood Urea Nitrogen 15 mg/dl (9-20); Carbon Dioxide 27 mmol/L (22-30); Chloride 106 mmol/L (98-107); Estimated Creatinine Clearance 88 ml/min; Glucose 126 mg/dl (70-99); Phosphorus 4.2 mg/dl (2.5-4.5); Potassium 4.1 mmol/L (3.5-5.1); Sodium 139 mmol/L (135-145); eGFR > 60.00
[2025-01-12 08:54] LABS: Glucose - Point of Care 207 mg/dl (70-99)
[2025-01-12] MEDS: ZETIA 10 MG PO (08:57)
[2025-01-12] MEDS: NORVASC 10 MG PO (08:57)
[2025-01-12] MEDS: THERAGRAN 1 TABLET PO (08:58)
[2025-01-12] MEDS: AVAPRO 300 MG PO (08:58)
[2025-01-12] MEDS: ORETIC 12.5 MG PO (08:58)
[2025-01-12] MEDS: GLUCOPHAGE 1000 MG PO ×2 (08:58→16:51)
[2025-01-12] MEDS: PROTONIX 40 MG PO (08:58)
[2025-01-12] MEDS: LIPITOR 80 MG PO (08:58)
[2025-01-12] MEDS: FLOMAX 0.4 MG PO (08:58)
[2025-01-12] MEDS: ZYLOPRIM 300 MG PO (08:58)
--- NOTE | 2025-01-12 09:27 | PTCARENOTE ---
Assumed care. Patient with no complaints. Heparin gtt 1800 units/hr. A-paced HR 74. Walking room independently, call agee in reach
[2025-01-12 12:10] LABS: Glucose - Point of Care 109 mg/dl (70-99)
--- NOTE | 2025-01-12 12:22 | W.PN.CD ---
Today's Communication / Plan
-
continue bride of heparin to coumadin until INR 2.5
Impression / Plan
-
69-year-old male with mechanical mitral valve replacement and coronary artery bypass grafting in 2007, atrial fibrillation, A-fib ablation pacemaker history of CVA who is scheduled have colonoscopy on Thursday. Patient in the past had an issue
after taking Lovenox. Since that time he has been bridged with IV heparin for procedures.. Patient previously was followed by Dr. Jin until his [facility] and now is followed by Dr. Martinez. Patient scheduled for colonoscopy by Dr. Mcallister on
01/11/2025. Last dose of Coumadin was on 01/07/2025. INR yesterday was 3.0. Today INR is below 2.0
.
Anticoagulation. Patient is anticoagulated with Coumadin and target INR has been 2.5-3.5. Some notes suggest the patient had CVA when INR was below 2.5. Patient is on anticoagulation due to mechanical mitral valve and history of A-fib
- coumadin held Thu, thursday and Thursday for colonoscopy and restarted Thursday01/12/20. He received 10mg . Usual dose is 7.5mg
.
Mechanical mitral valve. Stable by most recent echo. Anticoagulation as noted above
.
Coronary artery disease/history of coronary artery bypass grafting. Stable without angina.
..
Pacemaker. Stable
.
colonoscopy . mulitple small polyps removed . No source of anemia .
Physical Exam
Vital Signs/Labs
Vital Signs
Temp Pulse Resp BP Pulse Ox
97.7 F 73 20 121/73 97
01/12/25 11:30 01/12/25 08:57 01/12/25 11:30 01/12/25 08:57 01/12/25 11:30
01/11/25 01/12/25 01/13/25
06:59 06:59 06:59
Actual Weight 105.4 kg
01/12/25 05:26
01/12/25 05:26
PT 16.0 Sec (11.4-14.6) H 01/12/25 05:26
INR 1.23 01/12/25 05:26
APTT 96.7 Sec (23.4-35.0) H 01/12/25 05:26
Physical Exam
Constitutional: No acute distress
Cardiovascular: Rhythm & rate is regular
Respiratory: Respiratory effort normal
GI: Soft
Neuro/Psych: Alert
Data Reviewed
-
Date of Service: January 12, 2025
Medical Decision Making: Reviewed Test Results
Medical Tests (PFT, Pathology etc): Report Reviewed by me
Labs: Labs Reviewed by me
[2025-01-12 12:27] LABS: APTT 70.6 Sec (23.4-35.0)
[2025-01-12] MEDS: COUMADIN 10 MG PO (16:50)
[2025-01-12 17:03] LABS: Glucose - Point of Care 153 mg/dl (70-99)
[2025-01-12 20:04] LABS: APTT 112.4 Sec (23.4-35.0)
--- NOTE | 2025-01-12 21:41 | PTCARENOTE ---
Patient received at change of shift sitting at the edge of the bed. Heparin gtt infusing per order. Patient denies pain. Anxious for INR to be therapeutic. Atrial paced on the monitor. Oxygen saturation 97% on room air. Plan of care discussed. Call
agee within reach. Care ongoing.
[2025-01-13] VITALS (7 sets, daily range): BP systolic 95–124; BP diastolic 52–78
[2025-01-13] MEDS: HEPARIN 25000 UNITS/250 ML IV ×2 (03:16→19:12)
[2025-01-13] MEDS: ATIVAN 1 MG PO ×3 (03:23→19:41)
[2025-01-13 03:37] LABS: % Basophils 0.6 % (0-2); % Immature Granulocytes 0.5 % (0-0.5); % Monocytes 9.9 % (1.7-9.3); Absolute Eosinophils 0.3 10^3/uL (0-0.7); Absolute Lymphocytes 1.3 10^3/uL (1.2-3.4); Absolute Monocytes 0.6 10^3/uL (0.1-0.6); Hematocrit 35.9 % (39.0-52.0); Mean Corp Hgb Conc. 33.4 g/dL (33.0-37.0); Mean Corpuscular Hgb 31.2 pg (27.0-31.0); Mean Corpuscular Volume 93.2 fL (80.0-94.0); Mean Platelet Volume 9.4 fL (7.4-10.4); Nucleated Red Blood Cells % 0 % (-); Platelet Count 147 10^3/uL (130-400); Red Blood Cell Count 3.85 10^6/uL (4.70-6.10); Red Cell Dist. Width 13.3 % (11.5-14.5); White Blood Cell Count 6.2 10^3/uL (4.8-10.8)
[2025-01-13 03:53] LABS: INR 1.72; PT 20.3 Sec (11.4-14.6)
[2025-01-13 03:55] LABS: APTT 125.6 Sec (23.4-35.0)
[2025-01-13] MEDS: PROTONIX 40 MG PO (07:41)
[2025-01-13] MEDS: AVAPRO 300 MG PO (07:41)
[2025-01-13] MEDS: THERAGRAN 1 TABLET PO (07:41)
[2025-01-13] MEDS: LIPITOR 80 MG PO (07:41)
[2025-01-13] MEDS: ORETIC 12.5 MG PO (07:41)
[2025-01-13] MEDS: FEOSOL 325 MG PO ×2 (07:41→19:40)
[2025-01-13] MEDS: ZETIA 10 MG PO (07:41)
[2025-01-13] MEDS: GLUCOPHAGE 1000 MG PO ×2 (07:41→16:06)
[2025-01-13] MEDS: FLOMAX 0.4 MG PO (07:42)
[2025-01-13] MEDS: ZYLOPRIM 300 MG PO (07:42)
[2025-01-13] MEDS: NORVASC 10 MG PO (07:42)
--- NOTE | 2025-01-13 10:35 | W.PN.CD ---
Today's Communication / Plan
-
- On Coumadin with target INR of 2.5-3.5; some notes suggest the patient had CVA when INR was below 2.5.
- Usual dose is 7.5 mg--will resume that daily home dose (received 10 mg last night).
- Can be discharged when INR goal of >2.5 reached.
Impression / Plan
-
69-year-old male with mechanical mitral valve replacement and coronary artery bypass grafting in 2007, atrial fibrillation, A-fib ablation pacemaker history of CVA who is scheduled have colonoscopy on Thursday. Patient in the past had an issue
after taking Lovenox. Since that time he has been bridged with IV heparin for procedures.. Patient previously was followed by Dr. Jin until his correction and now is followed by Dr. Martinez. Patient scheduled for colonoscopy by Dr. Mcallister on
01/11/2025. Last dose of Coumadin was on 01/07/2025. INR yesterday was 3.0. Today INR is below 2.0
.
Mechanical mitral valve/PAF:
- On Coumadin with target INR of 2.5-3.5; some notes suggest the patient had CVA when INR was below 2.5.
- Usual dose is 7.5 mg--will resume that daily home dose (received 10 mg last night).
- Can be discharged when INR goal of >2.5 reached.
.
Coronary artery disease/history of coronary artery bypass grafting.
-Remains stable; denies any anginal symptoms.
.
Pacemaker.
- Remains stable
.
Colonoscopy . mulitple small polyps removed . No source of anemia .
Physical Exam
Vital Signs/Labs
Vital Signs
Temp Pulse Resp BP Pulse Ox
98.3 F 75 20 123/78 98
01/13/25 07:54 01/13/25 06:00 01/13/25 07:54 01/13/25 03:14 01/13/25 07:54
01/13/25 03:21
01/12/25 05:26
PT 20.3 Sec (11.4-14.6) H 01/13/25 03:21
INR 1.72 01/13/25 03:21
APTT 125.6 Sec (23.4-35.0) H 01/13/25 03:21
Physical Exam
Constitutional: No acute distress and Comfortable
EENT: Anicteric
Cardiovascular: Rhythm & rate is regular, Pedal edema is absent, Systolic murmur absent and S1S2 is normal (Mechanical S1/S2)
Respiratory: Respiratory effort normal and Lungs clear to auscul.
GI: Soft
Neuro/Psych: AO x 3
Other: Skin (Warm, dry, intact)
Data Reviewed
-
Date of Service: January 13, 2025
EKG: Tracing Personally Visualized and interpreted (Telemetry: A-paced)
Labs: Labs Reviewed by me
--- NOTE | 2025-01-13 11:50 | CM ---
Chart reviewed. Patient is independent of ADLS, lives with his , 2 STH, 4 KATHRYN, 0 DME. Plan is for the patient to return home. CM to follow
[2025-01-13 13:11] LABS: APTT 88.3 Sec (23.4-35.0)
[2025-01-13] MEDS: COUMADIN 7.5 MG PO (16:06)
--- NOTE | 2025-01-13 18:36 | PTCARENOTE ---
Assumed care at 0700. Patient independent in the room. A-paced on telemetry. Denies pain or shortness of breath. Heparin gtt infusing per MAR at 1700 units/hr. Coumadin 7.5 mg PO given today, call agee in reach
[2025-01-13 19:35] LABS: APTT 107.3 Sec (23.4-35.0)
--- NOTE | 2025-01-14 00:53 | PTCARENOTE ---
Pt. has no complaints pain/discomfort, A-paced on the monitor, VSS. Heparin gtt infusing at 1700 units/hr. Independent and ambulatory in room. Currently sleeping.
[2025-01-14 03:33] VITALS: BP 129/81
[2025-01-14] MEDS: ATIVAN 1 MG PO (03:37)
[2025-01-14 04:31] LABS: % Basophils 0.5 % (0-2); % Eosinophils 4.2 % (0-6); % Immature Granulocytes 0.5 % (0-0.5); % Lymphocytes 20.2 % (20.5-51.1); % Monocytes 8.7 % (1.7-9.3); % Neutrophils 65.9 % (42.2-75.2); Absolute Eosinophils 0.3 10^3/uL (0-0.7); Absolute Lymphocytes 1.2 10^3/uL (1.2-3.4); Absolute Monocytes 0.5 10^3/uL (0.1-0.6); Hematocrit 34.1 % (39.0-52.0); Hemoglobin 11.3 g/dL (13.0-18.0); Mean Corp Hgb Conc. 33.1 g/dL (33.0-37.0); Mean Corpuscular Volume 93.4 fL (80.0-94.0); Nucleated Red Blood Cells % 0 % (-); Platelet Count 161 10^3/uL (130-400); Red Blood Cell Count 3.65 10^6/uL (4.70-6.10)
[2025-01-14 04:36] LABS: INR 2.87
[2025-01-14 04:38] LABS: APTT 69.7 Sec (23.4-35.0)
[2025-01-14 07:28] VITALS: BP 131/110
--- NOTE | 2025-01-14 08:54 | W.PN.CD ---
Addendum entered and electronically signed by Barry Owens MD 01/14/25 10:53:
patient is seen and evaluated personally. I agree with the note, documentation and physical exam findings.
&1 yrs old man with mechanical mitral valve replacement and coronary artery bypass grafting in 2007, SSS s/p dual chamber PPM, atrial fibrillation, A-fib ablatio, history of CVA is here post colonoscopy on heparin drip for warfarin bridging. INR is
therapeutic now and heparin has been discontinued. OK to discharge home today
Original Note:
Today's Communication / Plan
-
d/c home
Impression / Plan
-
69-year-old male with mechanical mitral valve replacement and coronary artery bypass grafting in 2007, atrial fibrillation, A-fib ablation pacemaker history of CVA who is scheduled have colonoscopy on Thursday. Patient in the past had an issue
after taking Lovenox. Since that time he has been bridged with IV heparin for procedures..
.
Mechanical mitral valve/PAF:
- On Coumadin with target INR 3-3.5 from OP chart ; He was admitted for bridging for colonoscopy/endoscopy. some notes suggest the patient had CVA when INR was below 2.5.
- warfarin 5/14 10mg, 5/15 10mg, 5/16 7.5mg INR today 01/14 2.87. IV heparin d/c . Plan will be to d/c home on warfarin 7.5mg daily. Home INR on 01/17/25.
.
Coronary artery disease/history of coronary artery bypass grafting.
-Remains stable; denies any anginal symptoms.
.
Pacemaker.
- Remains stable
.
Colonoscopy/Endoscopy . multiple small polyps removed . No source of anemia . F/u GI.
dispo: d/c home
Physical Exam
Vital Signs/Labs
Vital Signs
Temp Pulse Resp BP Pulse Ox
98.2 F 70 16 129/81 96
01/14/25 03:34 01/14/25 03:33 01/14/25 03:34 01/14/25 03:33 01/14/25 03:34
01/14/25 03:56
01/12/25 05:26
PT 30.0 Sec (11.4-14.6) H 01/14/25 03:56
INR 2.87 01/14/25 03:56
APTT 69.7 Sec (23.4-35.0) H 01/14/25 03:56
Physical Exam
Constitutional: No acute distress
Cardiovascular: Rhythm & rate is regular and Pedal edema is absent
Respiratory: Respiratory effort normal and Lungs clear to auscul.
Neuro/Psych: AO x 3
Data Reviewed
-
Date of Service: January 14, 2025
Labs: Labs Reviewed by me
--- NOTE | 2025-01-14 09:01 | W.DS.TRANS ---
DC Summary - Planning And Analysis Manager
-
Discharge Instructions:
Discharge Diagnosis/Procedures s/p colonoscopy, endoscopy, IV heparin bridge
Diet Low Fat,Low Cholesterol,Diabetic, Carb
Controlled
Activity No restrictions
Driving Restrictions As prior to admission
Bathing Restrictions None
Blood Work Home INR on 01/17/25
Others Tests GI office will call you in 1 -2 weeks with
biopsy results.
Instructions:
Stand-Alone Forms:
Changes to Home Medications: No
Discharge Medications:
DC Medications w/original date entered in [employer]
ezetimibe 10 mg tablet 10 mg PO DAILY High cholesterol 02/14/10
dulaglutide 0.75 mg/0.5 mL subcutaneous pen injector (Trulicity) 0.75 mg SC MO Diabetes 01/10/19
warfarin 7.5 mg tablet (Jantoven) 7.5 mg PO QPM Blood clot prevention/tx 09/21/19
docusate sodium 250 mg capsule 250 mg PO BID Constipation 11/15/20
sennosides 8.6 mg tablet (senna) 8.6 mg PO BID Constipation 11/15/20
ferrous sulfate 325 mg (65 mg iron) tablet (Iron (ferrous sulfate)) 325 mg PO BID 02/19/22
amlodipine 10 mg tablet 10 mg PO DAILY 02/21/22
Citralith 2 packet PO DAILY 01/10/25
allopurinol 300 mg tablet 300 mg PO DAILY 01/10/25
atorvastatin 80 mg tablet (Lipitor) 80 mg PO DAILY 01/10/25
empagliflozin 10 mg tablet (Jardiance) 10 mg PO QPM 01/10/25
irbesartan 300 mg-hydrochlorothiazide 12.5 mg tablet 1 tab PO DAILY 01/10/25
lorazepam 1 mg tablet 1 mg PO Q6HPRN PRN anixety 01/10/25
metformin 1,000 mg tablet 1,000 mg PO BID 01/10/25
oxycodone-acetaminophen 5 mg-325 mg tablet (Percocet) 1 tab PO TIDPRN PRN severe pains 01/10/25
pantoprazole 40 mg tablet,delayed release (Protonix) 40 mg PO DAILY 01/10/25
ramelteon 8 mg tablet 8 - 16 mg PO HS 01/10/25
tamsulosin 0.4 mg capsule (Flomax) 0.4 mg PO DAILY 01/10/25
therapeutic multivitamin 1 tab PO DAILY 01/10/25
furosemide 40 mg tablet (Lasix) 40 mg PO DAILYPRN PRN edema #0 tabs 01/14/25
Home Medication Changes
Pending Results: Yes ( GI will call with biopsy results in 1-2 weeks)
[2025-01-14] MEDS: LIPITOR 80 MG PO (09:04)
[2025-01-14] MEDS: THERAGRAN 1 TABLET PO (09:04)
[2025-01-14] MEDS: GLUCOPHAGE 1000 MG PO (09:04)
[2025-01-14] MEDS: AVAPRO 300 MG PO (09:05)
[2025-01-14] MEDS: PROTONIX 40 MG PO (09:05)
[2025-01-14] MEDS: FLOMAX 0.4 MG PO (09:05)
[2025-01-14] MEDS: NEPHROCAP 1 CAPSULE PO (09:05)
[2025-01-14] MEDS: ORETIC 12.5 MG PO ×2 (09:05→09:06)
[2025-01-14] MEDS: ZETIA 10 MG PO (09:05)
[2025-01-14] MEDS: NORVASC 10 MG PO (09:06)
[2025-01-14] MEDS: FEOSOL 325 MG PO (09:08)
[2025-01-14] MEDS: ZYLOPRIM 300 MG PO (09:12)
[2025-01-14 11:32] VITALS: BP 128/82
--- NOTE | 2025-01-14 11:50 | PTCARENOTE ---
recieved PT from nightshift RN; AAOx4 w/o complaints of pain. NSR on monitor VSS; Ra 98%; GI and WNL; Heparin gtt d/c; Discharge orders recieved from MD; PT showered and IV's removed; all discharge instructions and medications reviewed w/
patient; PT verbalized understanding; PT [facility]ulated w/ [facility] was waiting.
== END 2025-01-14 13:07 | disposition home or self-care (01) | DRG 310 ==
LOC: IVU 14:36
PROVIDERS: Internal Medicine; Nurse Practitioner; ADMITTING PHYSICIAN Internal Medicine Cardiovascular Disease; CONSULT PHYSICIAN Specialist; EMERGENCY PHYSICIAN Student in an Organized Health Care Education/Training Program; FAMILY PHYSICIAN Family Medicine
PROC: 0DBH8ZZ Excision of Cecum, Via Natural or Artificial Opening Endoscopic (ICD-10-PCS; 2025-01-11)
PROC: 0DB98ZX Excision of Duodenum, Via Natural or Artificial Opening Endoscopic, Diagnostic (ICD-10-PCS; 2025-01-11)
PROC: 0DBK8ZZ Excision of Ascending Colon, Via Natural or Artificial Opening Endoscopic (ICD-10-PCS; 2025-01-11)
PROC: 0DBL8ZZ Excision of Transverse Colon, Via Natural or Artificial Opening Endoscopic (ICD-10-PCS; 2025-01-11)
PROC: 0DB68ZX Excision of Stomach, Via Natural or Artificial Opening Endoscopic, Diagnostic (ICD-10-PCS; 2025-01-11)
PROC: 0DBM8ZZ Excision of Descending Colon, Via Natural or Artificial Opening Endoscopic (ICD-10-PCS; 2025-01-11)
DX: I48.92 Unspecified atrial flutter (principal); E11.9 Type 2 diabetes mellitus without complications; E78.00 Pure hypercholesterolemia, unspecified; I10 Essential (primary) hypertension; I25.10 Atherosclerotic heart disease of native coronary artery without angina pectoris; K21.9 Gastro-esophageal reflux disease without esophagitis; E04.1 Nontoxic single thyroid nodule; I45.10 Unspecified right bundle-branch block; K44.9 Diaphragmatic hernia without obstruction or gangrene; K31.89 Other diseases of stomach and duodenum; I48.91 Unspecified atrial fibrillation; J30.2 Other seasonal allergic rhinitis; D50.9 Iron deficiency anemia, unspecified; K64.9 Unspecified hemorrhoids; D12.4 Benign neoplasm of descending colon; D12.3 Benign neoplasm of transverse colon; D12.2 Benign neoplasm of ascending colon; D12.0 Benign neoplasm of cecum; D17.5 Benign lipomatous neoplasm of intra-abdominal organs; K57.30 Diverticulosis of large intestine without perforation or abscess without bleeding; K63.5 Polyp of colon; G47.30 Sleep apnea, unspecified; Z87.891 Personal history of nicotine dependence; Z95.1 Presence of aortocoronary bypass graft; Z95.2 Presence of prosthetic heart valve; Z95.5 Presence of coronary angioplasty implant and graft; Z87.442 Personal history of urinary calculi; Z79.01 Long term (current) use of anticoagulants; Z79.84 Long term (current) use of oral hypoglycemic drugs; Z79.85 Long-term (current) use of injectable non-insulin antidiabetic drugs; Z86.73 Personal history of transient ischemic attack (TIA), and cerebral infarction without residual deficits; Z86.0102 Personal history of hyperplastic colon polyps; Z86.718 Personal history of other venous thrombosis and embolism; Z87.01 Personal history of pneumonia (recurrent); Z82.49 Family history of ischemic heart disease and other diseases of the circulatory system; Z91.018 Allergy to other foods
CPT/HCPCS: 88305; 80053; 80069; 82962; 85025; 85610; 85730; 88342; 96365; 96366; 99284

== ENCOUNTER → 2025-03-23 10:32 | Outpatient (REF) | payer MEDICARE, SELFPAY ==
[2025-03-23 12:06] LABS: Microalb - Urine Creatinine 40.400 mg/dl
[2025-03-23 12:11] LABS: Microalbumin, Random Urine 5.2 mg/dl (0.6-1.7)
[2025-03-23 12:18] LABS: ALT (SGPT) 27 U/L (0-50); AST (SGOT) 27 U/L (17-59); Albumin 4.7 g/dl (3.5-5.0); Alkaline Phosphatase 87 U/L (38-126); Blood Urea Nitrogen 21 mg/dl (9-20); Calcium 9.8 mg/dl (8.4-10.2); Carbon Dioxide 29 mmol/L (22-30); Chloride 102 mmol/L (98-107); Glucose 107 mg/dl (70-99); HDL Cholesterol 69 mg/dl; LDL Cholesterol, Calculated 69 mg/dl; Potassium 5.0 mmol/L (3.5-5.1); Sodium 138 mmol/L (135-145); Total Protein 7.2 g/dl (6.3-8.2); Very Low Density Lipoprotein 21 mg/dl (0-30); eGFR > 60.00
[2025-03-23 12:47] LABS: PSA, Total - Screen 1.87 ng/ml (0.0-4.0)
[2025-03-23 12:58] LABS: Glycohemoglobin (HgbA1c) 5.9 % (4.0-5.6)
[2025-03-23 13:28] LABS: TSH 1.75 uIU/ml (0.47-4.68)
== END ==
LOC: REG 10:32
PROVIDERS: ATTENDING PHYSICIAN Family Medicine; OTHER PHYSICIAN Internal Medicine Cardiovascular Disease
DX: E78.5 Hyperlipidemia, unspecified (principal); E11.69 Type 2 diabetes mellitus with other specified complication; Z12.4 Encounter for screening for malignant neoplasm of cervix; Z12.5 Encounter for screening for malignant neoplasm of prostate
CPT/HCPCS: 36415; 80053; 80061; 82043; 82570; 83036; 84443; G0103

== ENCOUNTER → 2025-05-19 08:10 | Outpatient (REF) | payer MEDICARE, SELFPAY | LOC: RAD 08:10 | PROVIDERS: ATTENDING PHYSICIAN Specialist; FAMILY PHYSICIAN Family Medicine | DX: N20.0 Calculus of kidney (principal) | CPT/HCPCS: 74018; 76775 ==

== ENCOUNTER → 2025-08-21 10:59 | Outpatient (REF) | payer MEDICARE, SELFPAY | LOC: RCS 10:59 | PROVIDERS: ATTENDING PHYSICIAN Internal Medicine Cardiovascular Disease; FAMILY PHYSICIAN Family Medicine | DX: Z95.5 Presence of coronary angioplasty implant and graft (principal); I49.5 Sick sinus syndrome; Z95.0 Presence of cardiac pacemaker | CPT/HCPCS: 93306 ==